=== PATIENT | male | born 1980 | race Caucasian/White ===

== ENCOUNTER 2018-09-02 23:26 | Emergency (ER) | payer MEDICAID, OTHER ==
[~2018-09-02] VITALS: Ht 193 cm; Wt 104.0 kg
[2018-09-02 23:31] VITALS: BP 119/75
[2018-09-03] MEDS ORDERED: TETanus/Pertussis (Acell)/Diphther VAC/PF (Tdap-Adult) 0.5ml syringe IM ONE (01:10)
[2018-09-03] MEDS ORDERED: bacitracin 15gm ointment TP ONE (01:10)
[2018-09-03] MEDS ORDERED: DOXYCYCLINE 100MG CAPSULE PO STA (01:43)
[2018-09-03] MEDS ORDERED: ondansetron 4mg rapidly disintigrating tab PO ONE (01:45)
[2018-09-03] MEDS ORDERED: CEPH250T PO (01:45)
[2018-09-03] MEDS ORDERED: DOXY100C43 PO (01:45)
[2018-09-03] MEDS ORDERED: cephalexin 250mg capsule PO ONE (01:45)
== END 2018-09-03 02:41 | disposition home or self-care (01) ==
LOC: ER 23:27
DX: S81.822A Laceration with foreign body, left lower leg, initial encounter (principal); Z79.899 Other long term (current) drug therapy; W22.8XXA Striking against or struck by other objects, initial encounter; Y93.55 Activity, bike riding; Y92.89 Other specified places as the place of occurrence of the external cause; Y99.8 Other external cause status
CPT/HCPCS: 73590; 90471; 90715; 99284

== ENCOUNTER 2018-11-13 01:28 | Emergency (ER) | payer MEDICAID, OTHER ==
[~2018-11-13] VITALS: Ht 195.6 cm; Wt 75.8 kg
[2018-11-13 01:37] VITALS: BP 129/60
--- NOTE | 2018-11-13 02:20 | NUR ---
ICE PACK PLACED TO RIGHT SHOULDER FOR PT COMFORT AND TO REDUCE INFLAMATION
[2018-11-13] MEDS ORDERED: TRAM50TA2 PO (02:24)
[2018-11-13] MEDS ORDERED: neomy sulf/bacitrac zn/polymixin b oint 14.2 gm tube TP ONE (02:25)
== END 2018-11-13 03:12 | disposition home or self-care (01) ==
LOC: ER 01:29
DX: S43.101A Unspecified dislocation of right acromioclavicular joint, initial encounter (principal); S60.512A Abrasion of left hand, initial encounter; S60.511A Abrasion of right hand, initial encounter; F17.200 Nicotine dependence, unspecified, uncomplicated; Z79.899 Other long term (current) drug therapy; V29.9XXA Motorcycle rider (driver) (passenger) injured in unspecified traffic accident, initial encounter; Y93.55 Activity, bike riding; Y92.488 Other paved roadways as the place of occurrence of the external cause; Y99.8 Other external cause status
CPT/HCPCS: 73030; 99284